=== PATIENT | male | born 1960 | race African-American/Black ===

== ENCOUNTER 2018-12-12 18:54 | Emergency (ER) | payer MEDICAID ==
--- NOTE | 2018-12-12 19:14 | Emergency Department Record ---
History of Present Illness - General Stated Complaint: LOW HEMOGLOBIN Time Seen by Provider: 12/12/18 19:10 Source: Patient Mode of Arrival: Ambulatory Limitations: No limitations - History of Present Illness Initial comments: 58 yo male presents to ED for evaluation of low hemoglobin. Patient reports a history of ESRD last dialyzed Wednesday, was due to dialysis this morning however "felt ill" and did not attend. Patient reports that he was called by his PCP and notified that his hemoglobin was "6.5". Patient came to ED for evaluation at the direction of his PCP Dr. España. Patient sees Dr. Cota for his nephrology needs. Consistency: Constant Improves with: None Worsens with: None Associated Symptoms: Denies other symptoms Treatments Prior to Arrival: None - [place] Coma Scale Eye Response: (4) Open spontaneously Motor Response: (6) Obeys commands Verbal Response: (5) Oriented Krishan Total: 15 - Related Data Home Medications Medication Instructions Recorded Confirmed Last Taken Buspirone HCl [Buspar] 10 mg PO BID 12/12/18 12/12/18 Unknown Carvedilol [Coreg] 25 mg PO BID 12/12/18 12/12/18 Unknown Clonidine HCl 0.2 mg PO BID 12/12/18 12/12/18 Unknown Fentanyl [Duragesic] 50 mcg TD Q72H 12/12/18 12/12/18 Unknown Hydralazine HCl 100 mg PO TID 12/12/18 12/12/18 Unknown Hydrocodone/APAP 5/325Mg [Wiggins 1 each PO Q6H 12/12/18 12/12/18 Unknown 5Mg/325Mg] Isosorbide Dinitrate 10 mg PO TID 12/12/18 12/12/18 Unknown Mirtazapine [Remeron] 30 mg PO DAILY 12/12/18 12/12/18 Unknown Ondansetron [Zofran Odt] 8 mg PO Q8H 12/12/18 12/12/18 Unknown Sevelamer Carbonate [Renvela] 1,600 mg PO BID 12/12/18 12/12/18 Unknown Sodium Polystyrene Sulfon/Sorb 60 ml PO ASDIR 12/12/18 12/12/18 Unknown [Kionex 15 gm/60 ml Suspension] Allergies Allergy/AdvReac Type Severity Reaction Status Date / Time No Known Drug Allergies Allergy Verified 12/12/18 19:38 Review of Systems Constitutional: Denies: Chills, Fever, Malaise, Night sweats Eyes: Denies: Eye discharge, Eye pain ENT: Denies: Congestion, Ear pain, Epistaxis Respiratory: Denies: Cough, Dyspnea Cardiovascular: Denies: Chest pain, Dyspnea on exertion Endocrine: Denies: Fatigue, Heat or cold intolerance Gastrointestinal: Denies: Abdominal pain, Nausea, Vomiting Genitourinary: Denies: Incontinence, Retention Musculoskeletal: Denies: Arthralgia, Back pain, Gout, Joint swelling Skin: Denies: Bruising, Change in color Neurological: Denies: Abnormal gait, Confusion, Headache Psychiatric: Denies: Anxiety Hematological/Lymphatic: Reports: Anemia. Denies: Blood Clots Physical Exam - General General Appearance: Alert, Oriented x3, Cooperative, Mild distress, Other ( Cachetic appaering on examination.) Limitations: No limitations - Head Head exam: Atraumatic, Normocephalic, Normal inspection Head exam detail: negative: Abrasion, Contusion, Parekh's sign, General tenderness, Hematoma, Laceration - Eye Eye exam: Normal appearance. negative: Conjunctival injection, Periorbital swelling, Periorbital tenderness, Scleral icterus - ENT Ear exam: negative: Auricular hematoma, Auricular trauma Nasal Exam: negative: Active bleeding, Discharge, Dried blood, Foreign body Mouth exam: negative: Drooling, Laceration, Muffled voice, Tongue elevation - Neck Neck exam: Normal inspection. negative: Meningismus, Tenderness - Respiratory Respiratory exam: Normal lung sounds bilaterally. negative: Respiratory distress, Rhonchi, Stridor, Wheezes - Cardiovascular Cardiovascular Exam: Regular rate, Normal rhythm, Normal heart sounds - GI/Abdominal GI/Abdominal exam: Soft. negative: Rebound, Rigid, Tenderness - Rectal Rectal exam: Deferred - exam: Deferred - Extremities Extremities exam: Other (Fistula LUE, thrill present.) - Back Back exam: Denies: CVA tenderness (R), CVA tenderness (L) - Neurological Neurological exam: Alert, Normal gait, Oriented X3 - Psychiatric Psychiatric exam: Normal affect, Normal mood - Skin Skin exam: Normal color. negative: Abrasion Type of lesion: negative: abrasion Course Vital Signs 12/12/18 19:08 Temperature 98.9 F Pulse Rate [ 89 Pulse Ox Probe] Respiratory 24 Rate Blood Pressure 152/83 [Left Arm] Pulse Ox 99 - Reevaluation(s) Reevaluation #1: 12/12/18 19:25 EKG: NSR 75 LAD, Normal intervals, Normal axis Non-specific ST-T wave changes Reevaluation #2: 12/12/18 19:44 Initial laboratory studies were reviewed: Hgb 6.5 (confirmed 6.6 repeat) HCT 19.9 Potassium 4.9 BUN 69/Creatinine 9.2. Type and screen ordered, will initiate transfer to [facility] for further evaluation and possible dialysis. Reevaluation #3: 12/12/18 19:50 Case was discussed with Dr. Kc, will accept transfer for further evaluation. Will initiate 1st unit PRBCs here pending transfer for dialysis. Medical Decision Making - Lab Data Result diagrams: 12/12/18 19:23 12/12/18 19:23 Disposition Disposition: Transfer Clinical Impression: ESRD (end stage renal disease) on dialysis Anemia Qualifiers: Anemia type: unspecified type Qualified Code(s): D64.9 - Anemia, unspecified Disposition: Acute Care Hospital Transfer Transfer To: [facility] Reason For Transfer: ESRD, andmia Accepting Physician: De Time Discussed w/Accepting Physician: 19:53 Condition: (2) Stable Time of Disposition: 19:53 Quality - Quality Measures Quality Measures: N/A - Blood Pressure Screening Does Patient Have Any of the Following: No Blood Pressure Classification: Pre-Hypertensive BP Reading Systolic Measurement: 152 Diastolic Measurement: 83 Screening for High Blood Pressure: < Pre-Hypertensive BP, F/U Documented > [ [id number]] Pre-Hypertensive Follow-up Interventions: Referral to alternative/primary care provider.
[2018-12-12 19:33] LABS: BASO % 0.3 % (0-6); GRAN % 43.7 % (47-80); HEMATOCRIT 19.9 % (42.0-52.0); LYMPH % 44.5 % (16-45); MEAN CORPUSCULAR HEMOGLOBIN 32.5 pg (27-33); MEAN CORPUSCULAR HGB CONC 33.2 g/dl (32-36); MEAN PLATELET VOLUME 9.8 fl (7.4-10.4); MONO % 10.5 % (0-9); PLATELET COUNT 363 K/uL (130-400); RED BLOOD COUNT 2.03 M/uL (4.40-5.70); RED CELL DISTRIBUTION WIDTH 16.6 % (11.5-14.5); WHITE BLOOD COUNT W/O DIFF 9.3 K/uL (4.2-12.2)
[2018-12-12 19:37] LABS: BLOOD UREA NITROGEN 69 mg/dL (6-20)
[2018-12-12 19:38] LABS: CREATININE 9.2 mg/dL (0.7-1.2); EST GLOMERULAR FILTRATION RATE 6 mL/min; TOTAL PROTEIN 6.3 g/dL (6.6-8.7)
[2018-12-12 19:40] LABS: GLUCOSE,RANDOM 116 mg/dL (74-109)
[2018-12-12 19:43] LABS: ALB/GLOB RATIO 1.6 (1.1-1.8); ALBUMIN 3.9 g/dL (4.0-5.0); ALKALINE PHOSPHATASE 54 U/L (40-129); ALT/SGPT < 5 U/L (<41); AST/SGOT 10 U/L (10.0-50.0)
[2018-12-12 21:11] LABS: ABO GROUP B; ANTIBODY SCREEN NEGATIVE (NEGATIVE); RH TYPE POSITIVE
[2018-12-12 21:31] LABS: IMMED. SPIN CROSSMATCH COMPATIBLE
[2018-12-13 07:01] LABS: HEMOGLOBIN 6.6 gm/dl (14.0-18.0)
== END 2018-12-12 22:47 | disposition short-term general hospital (02) ==
LOC: ER 18:54
DX: E11.22 Type 2 diabetes mellitus with diabetic chronic kidney disease (principal); N18.6 End stage renal disease; D64.9 Anemia, unspecified; Z99.2 Dependence on renal dialysis
CPT/HCPCS: 99285 ×2; 36430; 85025; 80053; 86900; 86901; 86850; 93005; 93010; P9016